=== PATIENT | male | born 1945 | race Caucasian/White ===

== ENCOUNTER 2018-07-10 19:06 | Emergency (ER) | payer OTHER, MEDICARE ==
--- NOTE | 2018-07-10 19:35 | PDOC ---
Rapid Medical Evaluation Time Seen by Provider: 07/10/18 19:34 Medical Evaluation: Allergies Allergy/AdvReac Type Severity Reaction Status Date / Time vancomycin Allergy Intermediate Rash Verified 06/08/15 12:48 shellfish derived Allergy Swelling Verified 06/08/15 12:48 I have performed a brief in-person evaluation of this patient. The patient presents with a chief complaint of: bleeding from incision site of left groin. Had a procedure with Dr. najera today. Patient is on Plavix and baby aspirin Pertinent physical exam findings: none I have ordered the following: nothing The patient will proceed to the ED for further evaluation. Discharge Disposition - Diagnosis Postoperative bleeding from incision - Referrals - Patient Instructions - Post Discharge Activity
[2018-07-10 19:36] VITALS: BP 122/76; PULSE 88; TEMP 98; BMI 28.8
--- NOTE | 2018-07-10 21:41 | PDOC ---
Attending Attestation - Resident Resident Name: Reginald Dominguez - ED Attending Attestation I have performed the following: I have examined & evaluated the patient, The case was reviewed & discussed with the resident, I agree w/resident's findings & plan - HPI HPI: 07/10/18 21:28 72-year-old male with history of her peripheral vascular disease status post interventional L femoral angioplasty and stent placement today with Dr. Gupta presents now with oozing from left groin site. Patient was fine postoperatively, was lying home and upon getting up from bed this evening noticed blood oozing from the site, presents for evaluation. No lightheadedness or syncope, no pain or discoloration. Patient is on aspirin and Plavix, has continued taking them. - Physicial Exam PE: 07/10/18 21:29 Vital signs are normal Patient is well-appearing and conversant Abdomen benign Left groin: Slight soft tissue swelling with superficial ecchymosis, no palpable hematomas, there is slow oozing from the needlestick site in the left groin. Palpable distal pulses, well perfused with brisk cap refill - Medical Decision Making 07/10/18 21:30 72y/o M s/p interventional angioplasty on a/c with oozing from groin, HD stable and vascular intact distally. pressure applied with resolution of bleeding pressure bandage, activity precautions, return criteria discussed
--- NOTE | 2018-07-10 21:52 | PDOC ---
History of Present Illness - General Chief Complaint: Hematuria Stated Complaint: BLEEDING FROM GROIN Time Seen by Provider: 07/10/18 19:34 History Source: Patient Exam Limitations: No Limitations - History of Present Illness Initial Comments: 07/10/18 21:53 The patient is a 72M with a PMH of PVD and HTN on ASA and plavix who presents to the ER with complaints of bleeding from his incision site. The patient states that he had stents placed today in his L leg. He had no complications until he went home and tried to get out of bed. He then states that he felt blood dripping down his leg. He tried to hold pressure without success and presented to the ER. He denies lightheadedness, palpitations, CP, SOB, nausea, vomiting, numbness, tingling, and weakness. Past History - Past Medical History Allergies/Adverse Reactions: Allergies Allergy/AdvReac Type Severity Reaction Status Date / Time vancomycin Allergy Intermediate Rash Verified 07/10/18 19:36 shellfish derived Allergy Swelling Verified 07/10/18 19:36 Home Medications: Ambulatory Orders Lisinopril [Prinivil] 10 mg PO DAILY #0 08/09/14 Omeprazole [Prilosec (RX)] 20 mg PO BID #0 08/09/14 Simvastatin [Zocor -] 40 mg PO HS 11/22/14 Gabapentin [Neurontin] 4,000 mg PO DAILY 01/04/15 Atenolol [Tenormin -] 25 mg PO HS 06/07/15 Aspirin [ASA -] 81 mg PO DAILY #30 tab.chew 06/11/15 Anemia: No Asthma: No Cancer: No Cardiac Disorders: No (PAD) CVA: No COPD: No CHF: No Dementia: No Diabetes: No GI Disorders: Yes (gerd, PANCREATITS) Disorders: No HTN: Yes Hypercholesterolemia: Yes Liver Disease: No Seizures: No Thyroid Disease: No - Surgical History Abdominal Surgery: Yes (LEFT INGUINAL HERNIA) Appendectomy: No Cardiac Surgery: No Cholecystectomy: Yes (1994) Lung Surgery: No Neurologic Surgery: No Orthopedic Surgery: No - Immunization History Td Vaccination: Yes - Suicide/Smoking/Psychosocial Hx Smoking Status: No Smoking History: Never smoked Have you smoked in the past 12 months: No Number of Cigarettes Smoked Daily: 0 If you are a former smoker, when did you quit?: 1994 'Breaking Loose' booklet given: 06/06/13 Hx Alcohol Use: Yes (SOCIAL) Drug/Substance Use Hx: No Substance Use Type: Alcohol Hx Substance Use Treatment: No Review of Systems - Review of Systems Able to Perform ROS?: Yes Comments:: 07/10/18 21:57 GENERAL/CONSTITUTIONAL: No fever or chills. No weakness. HEAD, EYES, EARS, NOSE AND THROAT: No change in vision. No ear pain or discharge. No sore throat. CARDIOVASCULAR: No chest pain, palpitations, or lightheadedness. RESPIRATORY: No cough, wheezing, shortness of breath, or hemoptysis. GASTROINTESTINAL: No nausea, vomiting, diarrhea, constipation, or abdominal pain. SKIN: No rash or lesions. NEUROLOGIC: No headache, numbness, tingling, focal weakness, loss of consciousness, or change in strength/sensation. ENDOCRINE: No increased thirst. No abnormal weight change. HEMATOLOGIC/LYMPHATIC: Positive for bleeding from incision site. ALLERGIC/IMMUNOLOGIC: No hives or skin allergy. Is the patient limited Spanish proficient: No *Physical Exam - Vital Signs Last Vital Signs Temp Pulse Resp BP Pulse Ox 98.0 F 88 18 122/76 98 07/10/18 19:34 07/10/18 19:34 07/10/18 19:34 07/10/18 19:34 07/10/18 19:34 - Physical Exam Comments: 07/10/18 21:58 GENERAL: Well developed, well nourished. Awake and alert. No acute distress. HEENT: Normocephalic, atraumatic. Hearing grossly normal. Moist mucous membranes. PERRLA, EOMI. No conjunctival pallor. Sclera are non-icteric. NECK: Supple. Full ROM. CARDIOVASCULAR: Regular rate and rhythm. No murmurs, rubs, or gallops. Distal pulses are 2+ and symmetric. PULMONARY: No evidence of respiratory distress. Lungs clear to auscultation bilaterally. No wheezing, rales or rhonchi. MUSCULOSKELETAL: Normal range of motion at all joints. No bony deformities or tenderness. EXTREMITIES: No cyanosis. No clubbing. No edema. No calf tenderness or swelling. SKIN: 0.5cm incision with slow bleed present in L inguinal area. Otherwise, warm and dry. Normal capillary refill. No rashes. No jaundice. NEUROLOGICAL: Alert, awake, appropriate. Cranial nerves 2-12 grossly intact. Normal speech. PSYCHIATRIC: Cooperative. Good eye contact. Appropriate mood and affect. Moderate Sedation - Procedure Monitoring Vital Signs: Procedure Monitoring Vital Signs Temperature 98.0 F 07/10/18 19:34 Pulse Rate 88 07/10/18 19:34 Respiratory Rate 18 07/10/18 19:34 Blood Pressure 122/76 07/10/18 19:34 O2 Sat by Pulse Oximetry (%) 98 07/10/18 19:34 Medical Decision Making - Medical Decision Making 07/10/18 21:59 The patient is a 72M on asa and plavix who presents with a bleed from his incision. Pressure was held for 20 minutes and bleeding subsided. Pressure dressing placed and pt informed to f/u with PCP and vascular surgeon and return if necessary. *DC/Admit/Observation/Transfer Diagnosis at time of Disposition: Postoperative bleeding from incision - Discharge Dispostion Disposition: HOME Condition at time of disposition: Stable Decision to Admit order: No - Referrals Referrals: ON STAFF,NOT [Primary Care Provider] - Emigdio Gupta MD [Staff Physician] - - Patient Instructions Additional Instructions: Please follow up with your primary care physician in 2-3 days. If you continue to notice bleeding, hold hard pressure for 30 minutes. If that does not work, you can try it with ice for another 30 minutes. If bleeding continues, please return to the ER. Please return to the ER if you have any signs or symptoms of chest pain, shortness of breath, uncontrollable fever, chills, nausea, vomiting, numbness, tingling, or weakness in any part of your body, changes in vision, or slurred speech. Please take your medications as prescribed. Please return to the ER if symptoms persist, worsen, or new symptoms arise. - Post Discharge Activity
== END 2018-07-10 22:01 | disposition home or self-care (01) ==
LOC: JER 19:06
DX: I97.618 Postprocedural hemorrhage of a circulatory system organ or structure following other circulatory system procedure (principal); Y83.2 Surgical operation with anastomosis, bypass or graft as the cause of abnormal reaction of the patient, or of later complication, without mention of misadventure at the time of the procedure; Y92.89 Other specified places as the place of occurrence of the external cause; I73.9 Peripheral vascular disease, unspecified; Z95.820 Peripheral vascular angioplasty status with implants and grafts
CPT/HCPCS: 99281-25

== ENCOUNTER 2021-03-03 04:46 | Day surgery (SDC) | payer OTHER, MEDICARE ==
[2021-03-01 16:36] VITALS: BMI 30.2
[2021-03-03 11:12] VITALS: TEMP 96.9
[2021-03-03 11:33] VITALS: PULSE 86
[2021-03-03 11:56] VITALS: BP 114/75
== END 2021-03-03 12:05 | disposition home or self-care (01) ==
LOC: JASU-ENDO 04:46
PROVIDERS: ATTEND Internal Medicine Gastroenterology
PROC: 0DB98ZX Excision of Duodenum, Via Natural or Artificial Opening Endoscopic, Diagnostic (ICD-10-PCS; 2021-03-03)
PROC: 0DB68ZX Excision of Stomach, Via Natural or Artificial Opening Endoscopic, Diagnostic (ICD-10-PCS; 2021-03-03)
PROC: 0DB28ZX Excision of Middle Esophagus, Via Natural or Artificial Opening Endoscopic, Diagnostic (ICD-10-PCS; 2021-03-03)
PROC: 0DB38ZX Excision of Lower Esophagus, Via Natural or Artificial Opening Endoscopic, Diagnostic (ICD-10-PCS; 2021-03-03)
PROC: 0DBK8ZX Excision of Ascending Colon, Via Natural or Artificial Opening Endoscopic, Diagnostic (ICD-10-PCS; principal; 2021-03-03 09:00)
DX: K57.30 Diverticulosis of large intestine without perforation or abscess without bleeding (principal); D12.2 Benign neoplasm of ascending colon; K64.8 Other hemorrhoids; K55.20 Angiodysplasia of colon without hemorrhage; K21.9 Gastro-esophageal reflux disease without esophagitis; K44.9 Diaphragmatic hernia without obstruction or gangrene; K29.00 Acute gastritis without bleeding
CPT/HCPCS: 88305-TC; 88342-TC

== ENCOUNTER 2021-04-07 18:36 | Inpatient (IN) | payer OTHER, MEDICARE ==
[2021-04-07] MEDS ORDERED: ACETAMINOPHEN 1000 MG/100 ML VIAL (NON FORMULARY) IVPB ONE (19:25)
[2021-04-07] MEDS ORDERED: SODIUM CHLORIDE 0.9% 1000 ML INFUS.BAG IV ONE (19:26)
[2021-04-07] MEDS ORDERED: ACETAMINOPHEN INJECTION 100 ML IVPB ONE (19:54)
[2021-04-07 20:12] LABS: BASO % 0.1 % (0-2.0); EOS % 0.1 % (0-4.5); HEMATOCRIT 45.5 % (35.4-49); HEMOGLOBIN 15.9 GM/dL (11.7-16.9); LYMPH % 9.9 % (8-40); MCH 29.5 pg (25.7-33.7); MCHC 34.8 g/dl (32.0-35.9); MEAN CELL VOLUME 84.7 fl (80-96); MEAN PLT VOLUME 9.4 fl (7.5-11.1); MONO % 8.4 % (3.8-10.2); NEUT % 81.5 % (42.8-82.8); PLATELET COUNT 113 10^3/uL (134-434); RBC 5.38 M/mm3 (4.00-5.60); RDW 15.3 % (11.9-15.9)
[2021-04-07 20:18] LABS: VENOUS BASE EXCESS -5.2 mmol/L (-2-2); VENOUS PCO2 40.7 mmHg (38-52); VENOUS PH 7.321 (7.310-7.410)
[2021-04-07 20:20] LABS: INR 1.05 (0.83-1.09); PROTHROMBIN TIME (PATIENT) 12.7 SEC (9.7-13.0)
[2021-04-07 20:22] LABS: ACTIVATED PTT 32.5 SECONDS (25.2-36.5)
[2021-04-07 20:31] LABS: CHLORIDE 100 mmol/L (98-107); SODIUM 134 mmol/L (136-145)
[2021-04-07 20:33] LABS: CALCIUM 9.4 mg/dL (8.5-10.1)
[2021-04-07 20:34] LABS: ALBUMIN 3.8 g/dl (3.4-5.0); ANION GAP 12 MMOL/L (8-16); CO2 22 mmol/L (21-32); GLUCOSE,RANDOM 90 mg/dL (74-106)
[2021-04-07 20:37] LABS: BILIRUBIN,DIRECT 0.3 mg/dL (0.0-0.2); CREATININE 1.9 mg/dL (0.55-1.3); SGOT/AST 29 U/L (15-37); SGPT/ALT 33 U/L (13-61)
[2021-04-07 20:39] LABS: BILIRUBIN,TOTAL 0.6 mg/dL (0.2-1); TOT PROT 7.8 g/dl (6.4-8.2)
[2021-04-07 20:40] LABS: ALK PHOS 90 U/L (45-117)
[2021-04-07 20:41] LABS: LACTIC ACID 2.4 mmol/L (0.4-2.0); LDH 174 U/L (87-246)
[2021-04-07] MEDS ORDERED: SODIUM CHLORIDE 1,000 ML IV SCH (23:00)
[2021-04-08] MEDS ORDERED: guaiFENesin 200 MG/10 ML 10 ML UNIT-DOSE CUPS PO PRN (02:05)
[2021-04-08] MEDS: HEPARIN NA (PORCINE) 5,000 UNITS/ML 1ML VIAL SQ SCH ×3 (06:58→21:28)
[2021-04-08] MEDS: DORZOLAMIDE 2% HCL OPHTHALMIC SOLUTION 10 ML BOTTLE OD SCH ×4 (06:59→21:28)
[2021-04-08 08:09] LABS: HEMATOCRIT 43.1 % (35.4-49); HEMOGLOBIN 14.9 GM/dL (11.7-16.9); MCH 29.6 pg (25.7-33.7); MCHC 34.5 g/dl (32.0-35.9); MEAN CELL VOLUME 85.7 fl (80-96); MEAN PLT VOLUME 9.1 fl (7.5-11.1); PLATELET COUNT 119 10^3/uL (134-434); RBC 5.03 M/mm3 (4.00-5.60); RDW 15.5 % (11.9-15.9); WHITE BLOOD COUNT 5.8 K/mm3 (4.0-10.0)
[2021-04-08 08:31] LABS: ALBUMIN 3.4 g/dl (3.4-5.0); BLOOD UREA NITROGEN 26.1 mg/dL (7-18); CALCIUM 8.5 mg/dL (8.5-10.1); MAGNESIUM 2.1 mg/dL (1.8-2.4)
[2021-04-08 08:34] LABS: PHOSPHOROUS 2.7 mg/dL (2.5-4.9)
[2021-04-08 08:35] LABS: CREATININE 1.5 mg/dL (0.55-1.3)
[2021-04-08 08:36] LABS: TOT PROT 7.2 g/dl (6.4-8.2)
[2021-04-08] MEDS ORDERED: PANTOPRAZOLE 40 MG TABLET PO SCH (10:00)
[2021-04-08] MEDS ORDERED: GABAPENTIN 400 MG CAPSULE PO SCH ×3 (10:00→14:00)
[2021-04-08] MEDS ORDERED: CHOLECALCIFEROL (VIT D3) 5000 UNITS (125 MCG) CAP PO SCH (10:00)
[2021-04-08] MEDS ORDERED: FAMOTIDINE 20 MG TABLET PO SCH (10:00)
[2021-04-08] MEDS ORDERED: DORZOLAMIDE 2% HCL OPHTHALMIC SOLUTION 10 ML BOTTLE OD SCH (10:00)
[2021-04-08] MEDS: GABAPENTIN 400 MG CAPSULE PO SCH (10:05)
[2021-04-08] MEDS: ASCORBIC ACID 250 MG TABLET (FP) PO SCH (10:05)
[2021-04-08] MEDS: ZINC SULFATE 220 MG CAPSULE (FP) PO SCH (10:05)
[2021-04-08] MEDS: CHOLECALCIFEROL (VIT D3) 1,000 UNIT (25 MCG) TABLET PO SCH (10:05)
[2021-04-08] MEDS ORDERED: PT OWN MED DRAWER 7, Y5N ONE (12:23)
[2021-04-08 14:30] LABS: EPI CELLS 3 /uL (0-25.1); HYALINE CASTS 1 /uL (0-3.1); PH,URINE 5.5 (5.0-8.0); URINE APPEARANCE CLEAR; URINE BACTERIA 4 /uL (0-1359); URINE BILIRUBIN NEGATIVE (NEGATIVE); URINE COLOR YELLOW; URINE GLUCOSE (UA) NEGATIVE (NEGATIVE); URINE KETONE 1+ (NEGATIVE); URINE LEUK ESTERASE NEGATIVE (NEGATIVE); URINE NITRITE NEGATIVE (NEGATIVE); URINE PROTEIN 1+ (NEGATIVE); URINE RBC 14 /uL (0-23.9); URINE WBC 2 /uL (0-25.8)
[2021-04-08] MEDS: FAMOTIDINE 20 MG TABLET PO SCH (14:55)
[2021-04-08] MEDS: ACETAMINOPHEN 1000 MG/100 ML VIAL (NON FORMULARY) IVPB PRN (15:36)
[2021-04-08] MEDS: SODIUM CHLORIDE 0.9%/KCL 20 MEQ/1,000 ML INFUS.BAG IV SCH (15:37)
[2021-04-08] MEDS ORDERED: CASIRIVIMAB/IMDEVIMAB 10 ML in SODIUM CHLORIDE 100 ML IVPB ONE (16:30)
[2021-04-08] MEDS ORDERED: ATORVASTATIN CA 40 MG TABLET (FP) PO SCH (22:00)
[2021-04-09] MEDS: ACETAMINOPHEN 1000 MG/100 ML VIAL (NON FORMULARY) IVPB PRN (01:47)
[2021-04-09] MEDS: HEPARIN NA (PORCINE) 5,000 UNITS/ML 1ML VIAL SQ SCH ×2 (05:50→14:25)
[2021-04-09] MEDS: SODIUM CHLORIDE 0.9%/KCL 20 MEQ/1,000 ML INFUS.BAG IV SCH (05:50)
[2021-04-09 08:03] LABS: BASO % 0.2 % (0-2.0); EOS % 0.2 % (0-4.5); HEMATOCRIT 36.5 % (35.4-49); HEMOGLOBIN 12.8 GM/dL (11.7-16.9); LYMPH % 15.9 % (8-40); MCH 29.6 pg (25.7-33.7); MCHC 35.1 g/dl (32.0-35.9); MEAN CELL VOLUME 84.4 fl (80-96); MEAN PLT VOLUME 8.9 fl (7.5-11.1); MONO % 13.4 % (3.8-10.2); NEUT % 70.3 % (42.8-82.8); PLATELET COUNT 99 10^3/uL (134-434); RBC 4.32 M/mm3 (4.00-5.60); RDW 15.4 % (11.9-15.9)
[2021-04-09 08:28] LABS: ALBUMIN 2.8 g/dl (3.4-5.0)
[2021-04-09 08:29] LABS: MAGNESIUM 1.9 mg/dL (1.8-2.4)
[2021-04-09 08:31] LABS: CREATININE 1.4 mg/dL (0.55-1.3)
[2021-04-09 08:32] LABS: BILIRUBIN,TOTAL 0.4 mg/dL (0.2-1); PHOSPHOROUS 2.5 mg/dL (2.5-4.9)
[2021-04-09 08:33] LABS: TOT PROT 6.1 g/dl (6.4-8.2)
[2021-04-09] MEDS ORDERED: PT OWN MED DRAWER 7, Y5N ONE (10:06)
[2021-04-09] MEDS: CHOLECALCIFEROL (VIT D3) 1,000 UNIT (25 MCG) TABLET PO SCH (10:36)
[2021-04-09] MEDS: ZINC SULFATE 220 MG CAPSULE (FP) PO SCH (10:36)
[2021-04-09] MEDS: GABAPENTIN 400 MG CAPSULE PO SCH (10:36)
[2021-04-09] MEDS: ASCORBIC ACID 250 MG TABLET (FP) PO SCH (10:36)
[2021-04-09] MEDS: FAMOTIDINE 20 MG TABLET PO SCH (10:36)
[2021-04-09] MEDS: DORZOLAMIDE 2% HCL OPHTHALMIC SOLUTION 10 ML BOTTLE OD SCH (10:36)
[2021-04-09] MEDS ORDERED: GABAPENTIN 400 MG CAPSULE PO SCH ×3 (14:49→22:00)
[2021-04-09 17:33] VITALS: BMI 25.9
[2021-04-09] MEDS ORDERED: ACETAMINOPHEN 325 MG TABLET (FP) PO PRN (17:51)
[2021-04-09 20:24] VITALS: BP 133/73; PULSE 93; TEMP 99.6
[2021-04-09] MEDS ORDERED: SIMVASTATIN 80 MG PO SCH (22:00)
[2021-04-10] MEDS ORDERED: ALLOPURINOL 300 MG TABLET (FP) PO SCH (10:00)
== END 2021-04-09 20:53 | disposition home or self-care (01) | DRG 177 ==
LOC: JER 18:36 → JERBED 22:46 → J8W 04-08 00:17
PROVIDERS: ADMIT Internal Medicine; ATTEND Internal Medicine
PROC: XW033G6 Introduction of REGN-COV2 Monoclonal Antibody into Peripheral Vein, Percutaneous Approach, New Technology Group 6 (ICD-10-PCS; principal; 2021-04-08)
DX: U07.1 COVID-19 (principal); G93.41 Metabolic encephalopathy; E87.2 Acidosis; N17.9 Acute kidney failure, unspecified; F05 Delirium due to known physiological condition; K21.9 Gastro-esophageal reflux disease without esophagitis; E78.5 Hyperlipidemia, unspecified; E66.9 Obesity, unspecified; I12.9 Hypertensive chronic kidney disease with stage 1 through stage 4 chronic kidney disease, or unspecified chronic kidney disease; N18.9 Chronic kidney disease, unspecified; R13.10 Dysphagia, unspecified; I73.9 Peripheral vascular disease, unspecified; Z68.25 Body mass index [BMI] 25.0-25.9, adult; D69.6 Thrombocytopenia, unspecified
CPT/HCPCS: 36415; 70450-TC; 71045-TC-FY; 74176-TC; 76775-TC; 80053; 81003; 82248; 82550; 82570; 82728; 82803; 83605; 83615; 83735; 83935; 84100; 84300; 84443; 84484; 85025; 85027; 85379; 85610; 85651; 85730; 86140; 87040; 87086; 87804; 93005; 93010; 99285-25; C9803; J0131; J1644; M0243; Q0240; Q0243; U0003; U0005

== ENCOUNTER 2023-06-11 11:44 | Emergency (ER) | payer OTHER, MEDICARE ==
[2023-06-11 12:00] VITALS: BP 190/75; PULSE 80; RESP 16; TEMP 98; BMI 26.3
[2023-06-11 13:41] LABS: HEMATOCRIT 47.7 % (35.4-49); HEMOGLOBIN 16.2 G/dL (11.7-16.9); INR 1.01 (0.83-1.09); MCH 29.5 pg (25.7-33.7); MEAN CELL VOLUME 86.8 fl (80-96); MEAN PLT VOLUME 9.4 fl (7.5-11.1); PLATELET COUNT 128.3 10^3/uL (134-434); PROTHROMBIN TIME (PATIENT) 11.7 SEC (9.7-13.0); WHITE BLOOD COUNT 6.1 10^3/uL (4.0-10.8)
[2023-06-11 13:44] LABS: PLATELET ESTIMATE ADEQUATE
[2023-06-11 13:52] LABS: ALBUMIN 4.3 g/dl (3.4-5.0); BILIRUBIN,TOTAL 1.3 mg/dl (0.2-1); CALCIUM 10.1 mg/dl (8.5-10.1); CREATININE 1.3 mg/dl (0.6-1.3); POTASSIUM 4.3 mmol/L (3.5-5.1); TOT PROT 6.8 g/dl (6.4-8.2)
== END 2023-06-11 15:30 | disposition left against medical advice (07) ==
LOC: FER 11:44
DX: R05.9 Cough, unspecified (principal); R42 Dizziness and giddiness; R41.82 Altered mental status, unspecified; Z20.822 Contact with and (suspected) exposure to COVID-19
CPT/HCPCS: 0241U-QW; 36415; 70450-TC; 71045-TC-FY; 80053; 84484; 85027; 85610; 93005; 99285-25

== ENCOUNTER 2023-11-04 10:21 | Emergency (ER) | payer OTHER, MEDICARE ==
[2023-11-04] MEDS ORDERED: ACETAMINOPHEN 325 MG TABLET (FP) ONE (10:40)
[2023-11-04] MEDS: ACETAMINOPHEN 325 MG TABLET (FP) PO ONE (10:42)
[2023-11-04 12:58] VITALS: BP 139/89; PULSE 68; RESP 16; TEMP 98; BMI 24.9
== END 2023-11-04 11:31 | disposition home or self-care (01) ==
LOC: FER 10:21
DX: M79.671 Pain in right foot (principal)
CPT/HCPCS: 73630-TC-RT-FY; 99283-25